=== PATIENT | male | born 1970 | race African-American/Black ===

== ENCOUNTER 2019-04-08 11:17 | Emergency (ER) | payer MEDICAID ==
[~2019-04-08] VITALS: Ht 185.4 cm; Wt 86.2 kg
[2019-04-08 11:17] VITALS: BP_SYST 166
--- NOTE | 2019-04-08 11:17 | NUR ---
BROUGHT IN BY [facility], TRIAGED AND REPORT GIVEN TO MEHUL
--- NOTE | 2019-04-08 11:20 | NUR ---
Patient Presented to ER with C/O chest pain. Patient brought in by ambulance post arrest by [place] [employer] Report from Paramedics also stated patient refusing to respond verbally. patient calm in gurney, A&Ox4, afebrile, pain 8/10, patient placed on surveillance system monitor and EKG completed upon arrival and given to Dr. Martínez to read.
--- NOTE | 2019-04-08 11:25 | NUR ---
ER at bedside examining patient.
[2019-04-08] MEDS ORDERED: ASPIRIN 81 MG TAB.CHEW PO ONE (11:30)
--- NOTE | 2019-04-08 11:38 | NUR ---
Report to Wiliam RAYO
--- NOTE | 2019-04-08 11:57 | NUR ---
Medication administered. Pt tolerated well. No adverse reactions noted.
--- NOTE | 2019-04-08 12:15 | NUR ---
Report from Wiliam RAYO
--- NOTE | 2019-04-08 12:16 | NUR ---
Pt ambulated to bathroom with non slip shoes and steady gait. Pt unable to urinate. Pt states "I'm so uncomfortable. I can't go number two. I need all the wires off." Pulse Ox, BP cuff, and ECG leads removed. Pt attempted to remove gown. Pt informed he must keep hospital gown to ensure his safety as a pt. States "I need to talk to my doctor, I have pain in my leg." Dr. Martínez notified.
--- NOTE | 2019-04-08 12:25 | NUR ---
Patient requested phone to call PMD. I directed PT to ER Fence Laborer desk, he made phone call to PMD. Patient states no answer at PMD.
--- NOTE | 2019-04-08 12:43 | NUR ---
ER Dr. Martínez at bedside talking to patient.
[2019-04-08 12:45] VITALS: BP_SYST 166
--- NOTE | 2019-04-08 12:50 | NUR ---
Noticed patient not in ER Bed 2
== END 2019-04-08 12:50 | disposition left against medical advice (07) ==
LOC: SED 11:17
DX: R07.9 Chest pain, unspecified (principal); I10 Essential (primary) hypertension; J45.909 Unspecified asthma, uncomplicated
CPT/HCPCS: 70450-TC; 71045; 99284